=== PATIENT | male | born 1970 | race Caucasian/White ===

== ENCOUNTER 2020-01-10 16:01 | Emergency (ER) | payer MEDICAID ==
[~2020-01-10] VITALS: Ht 167.6 cm; Wt 48.2 kg
[2020-01-10 16:15] VITALS: BP 100/60
--- NOTE | 2020-01-10 16:28 | NUR ---
PT W/C ASSISTED TO BED 2.
--- NOTE | 2020-01-10 17:00 | NUR ---
PT PRESENTS TO THE ER WITH C/O GENERALIZED WEAKNESS, AND SOB X 4 MONTHS. PAIN 05/23. PT STATES HE HAS LOST ABOUT 45 LBS UNINTENTIONALLY SINCE AUG 2019. SOB, AND CHEST PAIN WITH EXERTION. ALSO C/O NAUSEA, AND CONSTIPATION, AND EXCESSIVE THIRST. RECURRENT UTI'S WITH REDNESS AND DISCHARGE FROM THE PENIS,AND PAINFUL URINATION. BLE EDEMA WITH +2 PITTING. PMH: HTN, VENOUS INSUFFICIENCY, RECURRENT UTI NKDA, NKA
--- NOTE | 2020-01-10 17:25 | NUR ---
INFORMED PT THAT URINE SAMPLE IS NEEDED. PT VERBALIZED UNDERSTANDING.
--- NOTE | 2020-01-10 17:25 | NUR ---
TRIAL CONSULTANT AT BEDSIDE
--- NOTE | 2020-01-10 17:39 | NUR ---
PT TO CT SCAN VIA [facility]
[2020-01-10 18:05] LABS: BASOPHILS % (AUTO) 0.4 % (0.0-2.0); EOSINOPHILS % (AUTO) 0.2 % (0.0-4.0); HEMATOCRIT 39.7 % (36-52); HEMOGLOBIN 14.3 g/dL (12.0-18.0); LYMPHOCYTES # (AUTO) 0.5 K/uL (2.0-11.5); LYMPHOCYTES % (AUTO) 10.9 % (20.5-51.1); MEAN CORPUSCULAR HEMOGLOBIN 37 pg (27-31); MEAN CORPUSCULAR HGB CONC 36 g/dL (33-37); MEAN CORPUSCULAR VOLUME 102.3 fL (80-94); MONOCYTES # (AUTO) 0.3 K/uL (0.8-1.0); MONOCYTES % (AUTO) 6.2 % (1.7-9.3); NEUTROPHILS # (AUTO) 3.5 K/uL (1.8-7.7); NEUTROPHILS % (AUTO) 82.3 % (42.2-75.2); PLATELET COUNT (AUTO) 364 K/uL (140-450); RED BLOOD CELL COUNT(AUTO) 3.88 MIL/uL (4.20-6.10); RED CELL DISTRIBUTION WIDTH 15.1 % (11.6-13.7); WHITE BLOOD COUNT (AUTO) 4.3 K/uL (4.8-10.8)
--- NOTE | 2020-01-10 18:20 | NUR ---
PT DENIES PAIN AT THIS TIME. RESTING IN BED, TALKING AND SMILIING, NO SIGNS OF DISTRESS.
[2020-01-10 18:29] LABS: ALBUMIN 3.5 g/dL (3.4-5.0); ANION GAP 21.7 (8-16); CARBON DIOXIDE 18.9 mmol/L (21-32); CREATININE 0.8 mg/dL (0.6-1.3); POTASSIUM 3.6 mmol/L (3.5-5.1); TOTAL BILIRUBIN 0.6 mg/dL (0.0-1.0)
[2020-01-10 18:40] LABS: APPEARANCE,URINE CLEAR (CLEAR); BILIRUBIN,URINE NEGATIVE (NEGATIVE); BLOOD, URINE NEGATIVE (NEGATIVE); COLOR,URINE YELLOW (YELLOW); LEUKOCYTE ESTERASE ,URINE NEGATIVE (NEGATIVE); NITRITE, URINE NEGATIVE (NEGATIVE); PH,URINE 5.5 (5.0-9.0); UGLUCOSE 3+ (NEGATIVE)
--- NOTE | 2020-01-10 19:10 | NUR ---
RECIVED REPORT FROM JACINTA CORTEZ. CONTINUATION OF CARE.
--- NOTE | 2020-01-10 19:12 | NUR ---
REPORT TO DIEGO MARTINEZBLOCK MACHINE OPERATOR OF CARE AT THIS TIME
[2020-01-10] MEDS ORDERED: INSULIN REGULAR, HUMAN 100 UNIT/ML VIAL IVP ONE (19:20)
[2020-01-10] MEDS ORDERED: INSULIN REGULAR, HUMAN 100 UNIT/ML VIAL SUBQ ONE (19:35)
--- NOTE | 2020-01-10 19:50 | NUR ---
PT GLUCOSE @ 385. DR. WARNER GAVE NEW ORDER FOR HUMILIN R 10U IVP. PT IV SITE IS PATENT. NO REDNESS OR SWELLING NOTED AT SITE. PT DENIES PAIN AT IV SITE. PT AAO X4. SKIN WARM AND DRY TO TOUCH. RESPIRATIONS ARE EVEN AND UNLABORED. PT ON MONITOR. BED LOCKED AND IN LOWEST POSITION.
--- NOTE | 2020-01-10 19:50 | NUR ---
Note stephanieone in EDM - 01/11/20 at 0318 by [email or web address] PT AAO X4. SKIN WARM AND DRY TO TOUCH. RESPIRATIONS ARE EVEN AND UNLABORED. PT ON MONITOR. BED LOCKED AND IN LOWEST POSITION. PT DENIES CHEST PAIN AT THIS TIME. AT BEDSIDE.
--- NOTE | 2020-01-10 20:02 | NUR ---
PT AAO X4. SKIN WARM AND DRY TO TOUCH. RESPIRATIONS ARE EVEN AND UNLABORED. PT ON MONITOR. BED LOCKED AND IN LOWEST POSITION.
--- NOTE | 2020-01-10 20:02 | NUR ---
PT DENIES CHEST PAIN AT THIS TIME.
[2020-01-10 20:16] VITALS: BP 107/82
--- NOTE | 2020-01-10 20:16 | NUR ---
Patient discharged with v/s stable. Written and verbal after care instructions given and explained. Patient alert, oriented and verbalized understanding of instructions. Ambulatory with steady gait. All questions addressed prior to discharge. ID band removed. Patient advised to follow up with PMD. Rx of METFORMIN,KETOCONAZOLE, DIFLUCAN given. Patient educated on indication of medication including possible reaction and side effects. Opportunity to ask questions provided and answered.
== END 2020-01-10 20:16 | disposition home or self-care (01) ==
LOC: MED 16:01
DX: R64 Cachexia (principal); E11.9 Type 2 diabetes mellitus without complications; I10 Essential (primary) hypertension; I73.9 Peripheral vascular disease, unspecified; F17.200 Nicotine dependence, unspecified, uncomplicated; Z98.890 Other specified postprocedural states; Z71.6 Tobacco abuse counseling
CPT/HCPCS: 36415; 71250; 74176; 80053; 81003; 82150; 83690; 85025; 86886; 86900; 86901; 93005; 96374; 99285; J1815

== ENCOUNTER 2021-03-09 18:48 | Emergency (ER) | payer MEDICAID, OTHER ==
[~2021-03-09] VITALS: Ht 167.6 cm; Wt 59.4 kg
[2021-03-09 19:10] VITALS: BP 130/82
--- NOTE | 2021-03-09 19:10 | NUR ---
TO BED AMBULATORY
--- NOTE | 2021-03-09 19:25 | NUR ---
50 Y/O MALE PRESENTED TO ED C/O BL FOOT PAIN THAT RADIATES TO RT LOWER EXTREMITY X 2 - 3 MONTHS. PT HAS NEUROPATHY AND TAKES GABAPENTIN 600MG BUT STATES IT DOES NOT HELP W/ THE PAIN. +BL PEDAL PULSES, NO OBSERVED REDNESS , SWELLING OR BREAKDOWN OF SKIN NOTED. CAP REFIL < 3 SEC. PT SITTING UP IN BED, LOCKED AND IN LOWEST POSITION, HOB ELEVATED, SIDE RAIL X1. VSS. NO ACUTE DISTRESS NOTED. PMH: PAOLO HIGGINS
[2021-03-09] MEDS ORDERED: MORPHINE SULFATE 4 MG/ML SYR IM ONE (20:05)
--- NOTE | 2021-03-09 20:05 | NUR ---
ERMD AT BEDSIDE FOR MEDICAL EVALUATION.
--- NOTE | 2021-03-09 20:52 | NUR ---
Patient discharged with v/s stable. Written and verbal after care instructions given and explained. Patient verbalized understanding. Ambulatory with steady gait. All questions addressed prior to discharge. Advised to follow up with PMD.
== END 2021-03-09 20:52 | disposition home or self-care (01) ==
LOC: MED 18:48
DX: G90.09 Other idiopathic peripheral autonomic neuropathy (principal); E11.9 Type 2 diabetes mellitus without complications; I10 Essential (primary) hypertension; F17.210 Nicotine dependence, cigarettes, uncomplicated; Z71.6 Tobacco abuse counseling
CPT/HCPCS: 96372; 99283; J2270

== ENCOUNTER 2021-11-20 19:52 | Emergency (ER) | payer OTHER ==
[~2021-11-20] VITALS: Ht 167.6 cm; Wt 78.5 kg
[2021-11-20 20:16] VITALS: BP 117/78
[2021-11-20] MEDS: ETHYL CHLORIDE 105 ML SPR TP ONE (21:20)
[2021-11-20] MEDS: LIDOCAINE/EPI 1% 1:100000 20 ML VIAL INJ ONE (21:20)
[2021-11-20] MEDS ORDERED: CEPH-588 PO (21:26)
[2021-11-20] MEDS ORDERED: HYDR-5191 PO (21:28)
== END 2021-11-20 21:40 | disposition home or self-care (01) ==
LOC: MED 19:52
DX: N45.4 Abscess of epididymis or testis (principal)
CPT/HCPCS: 55100; 99284; J2001

== ENCOUNTER 2021-12-10 19:08 | Emergency (ER) | payer OTHER ==
[~2021-12-10] VITALS: Ht 76.2 cm; Wt 71.7 kg
[~2021-12-10 19:08] MED LIST: CEPH-588 PO; HYDR-5191 PO
[2021-12-10 19:29] VITALS: BP 135/93
[2021-12-10] MEDS ORDERED: HYDROcodone/APAP 5/325 MG 1 TAB TAB PO ONE (20:40)
--- NOTE | 2021-12-10 21:17 | NUR ---
TO US VIA W/C
[2021-12-10] MEDS ORDERED: ACET-8386 PO (22:05)
[2021-12-10] MEDS ORDERED: SULF-59 PO (22:05)
== END 2021-12-10 23:11 | disposition home or self-care (01) ==
LOC: MED 19:08
DX: N49.2 Inflammatory disorders of scrotum (principal); E10.9 Type 1 diabetes mellitus without complications; I10 Essential (primary) hypertension
CPT/HCPCS: 76870; 99284; Q0092